=== PATIENT | female | born 1995 | race Two or more races ===

== ENCOUNTER 2023-06-22 09:59 | Emergency (ER) | payer MEDICAID ==
[~2023-06-22] VITALS: Ht 162.6 cm; Wt 66.4 kg
[2023-06-22] MEDS ORDERED: TRAM50TA2 PO (12:29)
[2023-06-22] MEDS ORDERED: NAP500T PO (12:29)
[2023-06-22 12:46] VITALS: BP 115/70; PULSE 78; RESP 18; TEMP 98.4; O2SAT 98
== END 2023-06-22 12:47 | disposition home or self-care (01) ==
LOC: ER 09:59
DX: S00.33XA Contusion of nose, initial encounter (principal); W22.8XXA Striking against or struck by other objects, initial encounter; Y93.89 Activity, other specified; Y92.89 Other specified places as the place of occurrence of the external cause; Y99.8 Other external cause status
CPT/HCPCS: 70160